=== PATIENT | female | born 1945 | race Caucasian/White ===

== ENCOUNTER 2020-01-22 10:30 | Inpatient (IN) | payer OTHER, BC ==
[2020-01-22 10:57] VITALS: BMI 24.3
[2020-01-22 11:47] LABS: HEMATOCRIT 44.6 % (32.4-45.2); HEMOGLOBIN 14.8 GM/dl (10.7-15.3); MCH 29.7 pg (25.7-33.7); MCHC 33.3 g/dl (32.0-36.0); MEAN CELL VOLUME 89.2 fl (80-96); MEAN PLT VOLUME 9.6 fl (7.5-11.1); PLATELET COUNT 299 K/MM3 (134-434); RDW 11.4 % (11.6-15.6)
[2020-01-22 11:55] LABS: ACTIVATED PTT 32.5 SECONDS (25.2-36.5)
[2020-01-22 11:58] LABS: ALBUMIN 2.8 g/dl (3.4-5.0); BILIRUBIN,DIRECT 0.4 mg/dL (0.0-0.2); BILIRUBIN,TOTAL 1.2 mg/dl (0.2-1); CALCIUM 9.1 mg/dl (8.5-10); CREATININE 0.8 mg/dl (0.55-1.3); POTASSIUM 3.7 mmol/L (3.5-5.1); TOT PROT 5.7 g/dl (6.4-8.2)
[2020-01-22 12:02] LABS: INR 1.38 (0.82-1.09); PROTHROMBIN TIME (PATIENT) 15.3 SEC (10.2-13.0)
[2020-01-22 12:30] LABS: VENOUS BASE EXCESS 3.4 mmol/L (-2-2); VENOUS PC02 43.9 mmHg (38-52); VENOUS PH 7.42 (7.31-7.41)
[2020-01-22 12:31] LABS: VENOUS PO2 < 49 mmHg (28-48)
[2020-01-22] MEDS ORDERED: AZITHROMYCIN IVPB 500 MG in DEXTROSE 5%-WATER - 250 ML IVPB ONE (12:58)
[2020-01-22] MEDS ORDERED: AZITHROMYCIN 500 MG VIAL IVPB ONE (12:59)
[2020-01-22 14:07] LABS: PLATELET ESTIMATE ADEQUATE
[2020-01-22] MEDS: ZINC SULFATE 220 MG CAPSULE (FP) PO SCH (16:53)
[2020-01-22] MEDS: INSULIN (NOVOLOG) ASPART 100 UNITS/ML 10ML VIAL SQ SCH ×2 (16:53→21:38)
[2020-01-22 21:30] LABS: EPITHELIAL CELLS FEW /hpf
[2020-01-22] MEDS: HEPARIN NA (PORCINE) 5,000 UNITS/ML 1ML VIAL SQ SCH (21:37)
[2020-01-22] MEDS ORDERED: ATORVASTATIN CA 10 MG TABLET (FP) PO SCH (22:00)
[2020-01-23] MEDS: INSULIN (NOVOLOG) ASPART 100 UNITS/ML 10ML VIAL SQ SCH ×3 (06:40→16:03)
[2020-01-23 06:54] VITALS: BP 118/65; PULSE 91; TEMP 98.6
[2020-01-23] MEDS ORDERED: AZITHROMYCIN IVPB 500 MG in DEXTROSE 5%-WATER - 250 ML IVPB ONE (09:00)
[2020-01-23 09:08] LABS: EOS % 1.3 % (0-4.5); HEMATOCRIT 38.3 % (32.4-45.2); HEMOGLOBIN 13.3 GM/dl (10.7-15.3); LYMPH % 8.3 % (8-40); MCH 30.7 pg (25.7-33.7); MCHC 34.7 g/dl (32.0-36.0); MEAN CELL VOLUME 88.6 fl (80-96); MEAN PLT VOLUME 9.7 fl (7.5-11.1); MONO % 8.5 % (3.8-10.2); NEUT % 81.9 % (42.8-82.8); PLATELET COUNT 261 K/MM3 (134-434); RBC 4.32 M/mm3 (3.60-5.2); RDW 11.6 % (11.6-15.6); WHITE BLOOD COUNT 5.6 K/mm3 (4.0-10.8)
[2020-01-23 09:17] LABS: ALBUMIN 2.2 g/dl (3.4-5.0); CREATININE 0.6 mg/dl (0.55-1.3); MAGNESIUM 1.9 mg/dL (1.8-2.4); POTASSIUM 3.7 mmol/L (3.5-5.1); TOT PROT 4.5 g/dl (6.4-8.2)
[2020-01-23] MEDS ORDERED: FAMOTIDINE 20 MG TABLET PO SCH (10:00)
[2020-01-23] MEDS ORDERED: RAMIPRIL 5 MG CAPSULE PO SCH (10:00)
[2020-01-23] MEDS ORDERED: ASPIRIN COATED 81 MG TABLET.EC PO SCH (10:00)
[2020-01-23] MEDS ORDERED: CALCIUM CARBONATE 1200 MG PO SCH (10:00)
[2020-01-23] MEDS ORDERED: amLODIPine BESYLATE 5 MG TABLET (FP) PO SCH (10:00)
[2020-01-23] MEDS ORDERED: MULTIVITAMINS (DAILY MVI) TABLET (FP) PO SCH (10:00)
[2020-01-23] MEDS ORDERED: INSULIN DEGLUDEC SQ SCH (10:00)
[2020-01-23] MEDS: HEPARIN NA (PORCINE) 5,000 UNITS/ML 1ML VIAL SQ SCH (10:10)
[2020-01-23] MEDS: ZINC SULFATE 220 MG CAPSULE (FP) PO SCH (10:39)
[2020-01-23] MEDS ORDERED: HYDROXYCHLOROQUINE SO4 200 MG TABLET (FP) PO SCH (12:30)
[2020-01-24] MEDS ORDERED: HYDROXYCHLOROQUINE SO4 200 MG TABLET (FP) PO SCH (10:00)
== END 2020-01-23 17:30 | disposition home or self-care (01) | DRG 177 ==
LOC: FER 10:30 → UNDOADMIN 13:19 → FM/S 13:19
PROVIDERS: ATTEND Internal Medicine
DX: U07.1 COVID-19 (principal); J12.89 Other viral pneumonia; J80 Acute respiratory distress syndrome; I10 Essential (primary) hypertension; E11.9 Type 2 diabetes mellitus without complications; Z85.3 Personal history of malignant neoplasm of breast; E78.5 Hyperlipidemia, unspecified
CPT/HCPCS: 36415; 71045-TC-FY; 80053; 81003; 81015; 82248; 82550; 82803; 82962; 83605; 83615; 83735; 84484; 85025; 85379; 85610; 85730; 87040; 87086; 87186; 93005; 99291; J1644; U0002

== ENCOUNTER 2020-07-24 05:09 | Day surgery (SDC) | payer OTHER, BC ==
[2020-07-19 09:50] VITALS: BMI 24.7
--- OUTSIDE RECORDS SUMMARY | 2020-07-24 05:13 | XMS ---
:1945 Author Organization [facility] Support Name Relationship Address Phone RE, RETIRED Unavailable Unavailable Unavailable RE Unavailable Unavailable Unavailable ALFONZO MERRITT [address] [place] [address] ALFONZO MERRITT Spouse [address] [place] [address] Re-disclosure Warning The records that you are about to access may contain information from federally- assisted alcohol or drug abuse programs. If such information is present, then the following federally mandated warning applies: This information has been disclosed to you from records protected by federal confidentiality rules (42 CFR part 2). The federal rules prohibit you from making any further disclosure of this information unless further disclosure is expressly permitted by the written consent of the person to whom it pertains or as otherwise permitted by 42 CFR part 2. A general authorization for the release of medical or other information is NOT sufficient for this purpose. The Federal rules restrict any use of the information to criminally investigate or prosecute any alcohol or drug abuse patient.The records that you are about to access may contain highly sensitive health information, the redisclosure of which is protected by Article 27-F of the [facility] Public Health law. If you continue you may haveaccess to information: Regarding HIV / AIDS; Provided by facilities licensed or operated by the [facility] Office of Mental Health; or Provided by the [facility] Office for People With Developmental Disabilities. If such information is present, then the following [facility] mandated warning applies: This information has been disclosed to you from confidential records which are protected by state law. State law prohibits you from making any further disclosure of this information without the specific written consent of the person to whom it pertains, or as otherwise permitted by law. Any unauthorized further disclosure in violation of state law may result in a fine or [place] [facility] sentence or both. A general authorization for the release of medical or other information is NOT sufficient authorization for further disclosure. Insurance Providers Payer name Policy type Policy ID Covered Covered constitution party's Policy P celi / Coverage constitution party ID relationship to [employer] Inf ormation type [employer] BC PPO [id number] SP [id number] MEDICARE [id number] SP [id number] BC PPO [id number] SP [id number] MEDICARE [id number] SP [id number] A Results ID Date Data Source [id number] 07/19/2020 10:52:00 AM EDT [facility] Name Value Range Interpretation Description Data Sup porting Code Source(s) Document(s ) SARS [facility] coronavirus 2 RNA This lab was ordered by [facility] and reported by [facility]. ID Date Data Source [id number] 01/22/2020 11:25:00 AM EDT [facility] Name Value Range Interpretation Description Data Sup porting Code Source(s) Document(s ) SARS [facility] CORONAVIRUS 2 RNA This lab was ordered by [facility] and reported by [facility]. Procedure
[2020-07-24 09:09] VITALS: TEMP 97.8
[2020-07-24 10:08] VITALS: BP 119/87; PULSE 71
--- NOTE | 2020-07-25 15:30 | PATH ---
Surgical Pathology Report Patient Name: CAROLINE MERRITT [facility]. Rec. #: [id number] /Age/Gender: 1945 (Age: 75) / F Account: [id number] Location: [facility]-ENDOSCOPY Taken: 07/24/2020 Received: 07/24/2020 Reported: 07/25/2020 Physicians: Bill Cervantes M.D. Specimen(s) Received A: POLYP AT DISTAL PREVIOUS RECTAL CANCER SITE B: POLYP AT PROXIMAL PREVIOUS RECTAL CANCER SITE( HOT SNARE) C: CECAL POLYPS D: PREVIOUS RECTAL CANCER SITE Clinical History History of colon adenoma, rectal cancer Postoperative diagnosis: Polyps, diverticulosis, radiation proctitis Final Diagnosis A. POLYP, DISTAL PREVIOUS RECTAL CANCER SITE, BIOPSY: TUBULAR ADENOMA. B. POLYP, PROXIMAL PREVIOUS RECTAL CANCER SITE, POLYPECTOMY: TUBULAR ADENOMA. C. CECAL POLYPS, BIOPSY: TUBULAR ADENOMA. POLYPOID COLONIC MUCOSA WITH SMALL LYMPHOID AGGREGATE. D. PREVIOUS RECTAL CANCER SITE, BIOPSY: TUBULAR ADENOMA. Electronically Signed Maria Eugenia Fang M.D. Gross Description A. Received in formalin, labeled "biopsy polyp at distal previous rectal cancer site" is a bailey, irregular portion of soft tissue measuring 0.2 cm. in greatest dimension. The specimen is submitted in toto in one cassette. B. Received in formalin, labeled "polyp at proximal previous rectal cancer site" is a bailey, irregular portion of soft tissue measuring 0.4 cm. in greatest dimension. The specimen is submitted in toto in one cassette. C. Received in formalin, labeled "biopsy cecal polyps" are 4 bailey, irregular portions of soft tissue ranging from 0.1-0.5 cm. in greatest dimension. The specimens are submitted in toto in one cassette. D. Received in formalin, labeled "biopsy previous rectal cancer site" are 3 bailey, irregular portions of soft tissue averaging 0.2 cm. in greatest dimension. The specimens are submitted in toto in one cassette. DL/07/24/2020 saudi/07/24/2020
== END 2020-07-24 10:21 | disposition home or self-care (01) ==
LOC: JASU-ENDO 05:09
PROVIDERS: ATTEND Internal Medicine Gastroenterology
PROC: 0DBH8ZX Excision of Cecum, Via Natural or Artificial Opening Endoscopic, Diagnostic (ICD-10-PCS; 2020-07-24)
PROC: 0DBP8ZX Excision of Rectum, Via Natural or Artificial Opening Endoscopic, Diagnostic (ICD-10-PCS; principal; 2020-07-24 08:00)
DX: Z12.11 Encounter for screening for malignant neoplasm of colon (principal); Z86.010 Personal history of colon polyps; Z85.048 Personal history of other malignant neoplasm of rectum, rectosigmoid junction, and anus; K62.1 Rectal polyp; K57.30 Diverticulosis of large intestine without perforation or abscess without bleeding; K64.8 Other hemorrhoids; K62.7 Radiation proctitis
CPT/HCPCS: 82962; 88305-TC

== ENCOUNTER 2023-08-01 04:45 | Day surgery (SDC) | payer OTHER, BC ==
[2023-07-25 11:42] VITALS: BMI 25.6
[2023-08-01 13:51] VITALS: PULSE 85
[2023-08-01 13:56] VITALS: BP 134/79; RESP 22; TEMP 97.8
== END 2023-08-01 12:40 | disposition home or self-care (01) ==
LOC: JASU-ENDO 04:45
PROVIDERS: ATTEND Internal Medicine Gastroenterology
PROC: 0DBP8ZX Excision of Rectum, Via Natural or Artificial Opening Endoscopic, Diagnostic (ICD-10-PCS; 2023-08-01)
PROC: 0DBK8ZX Excision of Ascending Colon, Via Natural or Artificial Opening Endoscopic, Diagnostic (ICD-10-PCS; principal; 2023-08-01 11:00)
DX: Z12.11 Encounter for screening for malignant neoplasm of colon (principal); Z85.038 Personal history of other malignant neoplasm of large intestine; D12.2 Benign neoplasm of ascending colon; K64.8 Other hemorrhoids; K57.30 Diverticulosis of large intestine without perforation or abscess without bleeding
CPT/HCPCS: 82962; 88305-TC

== ENCOUNTER 2025-01-18 06:44 | Day surgery (SDC) | payer OTHER, BC ==
[2025-01-13 11:34] VITALS: BMI 25.9
[2025-01-18 09:05] VITALS: TEMP 97.8
[2025-01-18 09:34] VITALS: RESP 20
[2025-01-18 09:35] VITALS: BP 129/73; PULSE 71
== END 2025-01-18 09:52 | disposition home or self-care (01) ==
LOC: JASU-ENDO 06:44
PROVIDERS: ATTEND Internal Medicine Gastroenterology
PROC: 0DBP8ZX Excision of Rectum, Via Natural or Artificial Opening Endoscopic, Diagnostic (ICD-10-PCS; principal; 2025-01-18 08:00)
DX: Z12.11 Encounter for screening for malignant neoplasm of colon (principal); D12.8 Benign neoplasm of rectum; K55.20 Angiodysplasia of colon without hemorrhage; Z85.038 Personal history of other malignant neoplasm of large intestine; Z98.0 Intestinal bypass and anastomosis status
CPT/HCPCS: 82962; 88305-TC